=== PATIENT | female | born 1960 | race Caucasian/White ===

== ENCOUNTER 2021-06-01 04:55 | Day surgery (SDC) | payer BC ==
[2021-05-30 15:24] VITALS: BMI 24.7
[2021-06-01] MEDS ORDERED: KETAMINE HCL 200 MG/20 ML VIAL ONE (07:30)
[2021-06-01 08:38] VITALS: TEMP 97.7
[2021-06-01 09:36] VITALS: BP 120/65; PULSE 58
== END 2021-06-01 09:46 | disposition home or self-care (01) ==
LOC: JASU-ENDO 04:55
PROVIDERS: ATTEND Internal Medicine Gastroenterology
PROC: 0DBN8ZX Excision of Sigmoid Colon, Via Natural or Artificial Opening Endoscopic, Diagnostic (ICD-10-PCS; 2021-06-01)
PROC: 0DBP8ZX Excision of Rectum, Via Natural or Artificial Opening Endoscopic, Diagnostic (ICD-10-PCS; principal; 2021-06-01 08:00)
DX: Z12.11 Encounter for screening for malignant neoplasm of colon (principal); K62.1 Rectal polyp; D12.5 Benign neoplasm of sigmoid colon; K63.89 Other specified diseases of intestine
CPT/HCPCS: 88305-TC

== ENCOUNTER 2021-08-25 12:00 | Emergency (ER) | payer BC ==
[2021-08-25 12:31] VITALS: BP 144/82; PULSE 89; TEMP 98.9; BMI 32.9
[2021-08-25] MEDS ORDERED: DIPHTH,PERTUSS(ACELL),TET 0.5 ML DISP.SYRIN IM ONE ×2 (13:03→13:06)
== END 2021-08-25 13:16 | disposition home or self-care (01) ==
LOC: FER 12:00 → SUPCPDRO 12:00 → FER 13:16
PROC: 3E0234Z Introduction of Serum, Toxoid and Vaccine into Muscle, Percutaneous Approach (ICD-10-PCS; principal; 2021-08-25)
DX: R04.0 Epistaxis (principal)
CPT/HCPCS: 90715; 99282-25

== ENCOUNTER 2024-07-05 17:23 | Emergency (ER) | payer BC ==
[2024-07-05 17:39] VITALS: BP 151/81; PULSE 77; RESP 20; TEMP 98.2; BMI 24.7
[2024-07-05] MEDS: ACETAMINOPHEN 1000 MG/100 ML BAG IVPB ONE (17:54)
[2024-07-05] MEDS: KETOROLAC TROMETHAMINE 15 MG/ML VIAL IVPUSH ONE (17:54)
[2024-07-05] MEDS: SODIUM CHLORIDE 0.9% 500 ML INFUS.BAG IV ONE (17:54)
[2024-07-05] MEDS: ONDANSETRON 4 MG/2 ML VIAL IVPB ONE (17:54)
[2024-07-05] MEDS ORDERED: KETOROLAC TROMETHAMINE 30 MG/1 ML VIAL ONE (17:55)
[2024-07-05] MEDS ORDERED: ACETAMINOPHEN INJECTION 100 ML ONE (17:56)
[2024-07-05] MEDS ORDERED: ONDANSETRON 4 MG/2 ML VIAL ONE (17:56)
[2024-07-05 18:11] LABS: HEMATOCRIT 36.8 % (32.4-45.2); HEMOGLOBIN 11.7 G/dL (10.7-15.3); MCH 28.3 pg (25.7-33.7); MCHC 31.8 g/dl (32.0-36.0); MEAN CELL VOLUME 88.9 fl (80-96); MEAN PLT VOLUME 9.1 fl (7.5-11.1); PLATELET COUNT 223.6 10^3/uL (134-434); RBC 4.14 10^6/uL (3.60-5.2); RDW 13.8 % (11.6-15.6); WHITE BLOOD COUNT 6.5 10^3/uL (4.0-10.8)
[2024-07-05 18:27] LABS: ALBUMIN 4.4 g/dl (3.4-5.0); BILIRUBIN,TOTAL 0.5 mg/dl (0.2-1); CALCIUM 9.7 mg/dl (8.5-10.1); CREATININE 0.8 mg/dl (0.6-1.3); POTASSIUM 3.7 mmol/L (3.5-5.1); TOT PROT 6.8 g/dl (6.4-8.2)
[2024-07-05 22:25] LABS: PLATELET ESTIMATE ADEQUATE
== END 2024-07-05 20:50 | disposition home or self-care (01) ==
LOC: FER 17:23
PROC: 3E033NZ Introduction of Analgesics, Hypnotics, Sedatives into Peripheral Vein, Percutaneous Approach (ICD-10-PCS; principal; 2024-07-05)
PROC: 3E0333Z Introduction of Anti-inflammatory into Peripheral Vein, Percutaneous Approach (ICD-10-PCS; 2024-07-05)
PROC: 3E033GC Introduction of Other Therapeutic Substance into Peripheral Vein, Percutaneous Approach (ICD-10-PCS; 2024-07-05)
DX: R31.9 Hematuria, unspecified (principal); R10.32 Left lower quadrant pain
CPT/HCPCS: 36415; 74176-TC; 80053; 81003; 81015; 85027; 87086; 99284-25; J0131

== ENCOUNTER 2024-07-17 19:18 | Emergency (ER) | payer BC ==
[2024-07-17 19:27] VITALS: BP 143/88; PULSE 85; RESP 18; TEMP 98.4; BMI 23.3
[2024-07-17] MEDS ORDERED: KETOROLAC TROMETHAMINE 30 MG/1 ML VIAL ONE (19:29)
[2024-07-17] MEDS ORDERED: ONDANSETRON 4 MG/2 ML VIAL ONE (19:30)
[2024-07-17] MEDS: KETOROLAC TROMETHAMINE 30 MG/1 ML VIAL IVPUSH ONE (19:33)
[2024-07-17] MEDS: ONDANSETRON 4 MG/2 ML VIAL IVPUSH ONE (19:34)
[2024-07-17 20:02] LABS: HEMOGLOBIN 11.7 G/dL (10.7-15.3); MCH 29.2 pg (25.7-33.7); MCHC 32.4 g/dl (32.0-36.0); MEAN CELL VOLUME 89.9 fl (80-96); MEAN PLT VOLUME 8.7 fl (7.5-11.1); RDW 13.6 % (11.6-15.6); WHITE BLOOD COUNT 6.6 10^3/uL (4.0-10.8)
[2024-07-17 20:09] LABS: INR 0.97 (0.83-1.09); PROTHROMBIN TIME (PATIENT) 11.1 SEC (9.7-13.0)
[2024-07-17 20:10] LABS: PLATELET ESTIMATE ADEQUATE
[2024-07-17 20:19] LABS: ALBUMIN 4.5 g/dl (3.4-5.0); ALK PHOS 65 U/L (45-117); ANION GAP 9 mmol/L (4-13); BILIRUBIN,TOTAL 0.6 mg/dl (0.2-1); CALCIUM 9.7 mg/dl (8.5-10.1); CHLORIDE 104 mmol/L (98-107); CO2 28 mmol/L (21-32); CREATININE 0.9 mg/dl (0.6-1.3); GLUCOSE,RANDOM 125 mg/dl (74-106); POTASSIUM 3.6 mmol/L (3.5-5.1); SGOT/AST 19 U/L (15-37); SGPT/ALT 13 U/L (7-52); SODIUM 141 mmol/L (136-145); TOT PROT 6.9 g/dl (6.4-8.2)
[2024-07-17 22:18] LABS: EPITHELIAL CELLS 0-5 /hpf
== END 2024-07-17 21:29 | disposition home or self-care (01) ==
LOC: FER 19:18
PROC: 3E0333Z Introduction of Anti-inflammatory into Peripheral Vein, Percutaneous Approach (ICD-10-PCS; principal; 2024-07-17)
PROC: 3E033GC Introduction of Other Therapeutic Substance into Peripheral Vein, Percutaneous Approach (ICD-10-PCS; 2024-07-17)
DX: N23 Unspecified renal colic (principal)
CPT/HCPCS: 36415; 71046-TC-FY; 80053; 81003; 81015; 85027; 85610; 86850; 86900; 86901; 87086; 93005; 99285-25

== ENCOUNTER 2024-07-19 08:34 | Day surgery (SDC) | payer BC ==
[2024-07-19] MEDS ORDERED: ACETAMINOPHEN 500 MG TABLET (FP) ONE (08:48)
[2024-07-19] MEDS: ACETAMINOPHEN 500 MG TABLET (FP) PO ONE (09:00)
[2024-07-19 09:13] VITALS: BMI 23.3
[2024-07-19] MEDS ORDERED: MIDAZOLAM HCL 2 MG/2 ML SINGLE DOSE VIAL ONE (12:13)
[2024-07-19] MEDS ORDERED: PROPOFOL 20 ML ONE (12:13)
[2024-07-19] MEDS: ceFAZolin SODIUM 1 GM VIAL IVPB ONE (12:36)
[2024-07-19] MEDS ORDERED: DEXAMETHASONE SOD PHOSPHATE 4 MG/1 ML VIAL ONE (12:44)
[2024-07-19] MEDS ORDERED: ONDANSETRON 4 MG/2 ML VIAL ONE (12:44)
[2024-07-19] MEDS ORDERED: hydrALAZINE HCL 20 MG/ML VIAL ONE (12:44)
[2024-07-19] MEDS ORDERED: ceFAZolin SODIUM 1 GM VIAL ONE (12:44)
[2024-07-19] MEDS ORDERED: oxyCODONE HCL 5 MG TABLET PO PRN (13:24)
[2024-07-19] MEDS ORDERED: ONDANSETRON 4 MG/2 ML VIAL IVPUSH PRN (13:24)
[2024-07-19] MEDS: LACTATED RINGERS SOLUTION 1,000 ML IV SCH (13:30)
[2024-07-19] MEDS ORDERED: ELECTROLYTE-148 SOLN 1,000 ML IV SCH (13:45)
[2024-07-19] MEDS: ACETAMINOPHEN 1000 MG/100 ML BAG IVPB ONE (14:02)
[2024-07-19 14:29] VITALS: RESP 20
[2024-07-19 16:13] VITALS: BP 110/63; PULSE 66; TEMP 97.1
== END 2024-07-19 16:00 | disposition home or self-care (01) ==
LOC: JASU-SURG 08:34
PROVIDERS: ATTEND Urology
PROC: 0TC18ZZ Extirpation of Matter from Left Kidney, Via Natural or Artificial Opening Endoscopic (ICD-10-PCS; principal; 2024-07-19 12:30)
DX: N23 Unspecified renal colic (principal)
CPT/HCPCS: 76000-TC-FY; 94760; C2617

== ENCOUNTER 2024-09-05 22:15 | Emergency (ER) | payer BC ==
[2024-09-05 22:21] VITALS: BP 120/79; PULSE 72; RESP 18; TEMP 98.2; BMI 23.0
[2024-09-05] MEDS: morphine CARPU-JECT 2 MG/1 ML DISP.SYRIN IVPUSH ONE (23:07)
[2024-09-05] MEDS ORDERED: KETOROLAC TROMETHAMINE 30 MG/1 ML VIAL ONE (23:08)
[2024-09-05] MEDS ORDERED: ONDANSETRON *ODT* 4 MG TABLET ONE (23:08)
[2024-09-05] MEDS: KETOROLAC TROMETHAMINE 60 MG/2 ML VIAL IM ONE (23:17)
[2024-09-05] MEDS: ONDANSETRON 4 MG TABLET PO ONE (23:17)
[2024-09-06 00:46] LABS: BASO % 0.8 % (0-2.0); EOS % 0.9 % (0-4.5); HEMATOCRIT 33.3 % (32.4-45.2); HEMOGLOBIN 11.1 GM/dL (10.7-15.3); LYMPH % 11.4 % (8-40); MCH 29.2 pg (25.7-33.7); MCHC 33.4 g/dl (32.0-36.0); MEAN CELL VOLUME 87.2 fl (80-96); MEAN PLT VOLUME 8.9 fl (7.5-11.1); NEUT % 81.9 % (42.8-82.8); PLATELET COUNT 237 10^3/uL (134-434); RBC 3.82 M/mm3 (3.60-5.2); RDW 13.1 % (11.6-15.6); WHITE BLOOD COUNT 8.5 K/mm3 (4.0-10.0)
[2024-09-06 01:03] LABS: POTASSIUM 3.3 mmol/L (3.5-5.1)
[2024-09-06 01:05] LABS: CALCIUM 8.8 mg/dL (8.5-10.1)
[2024-09-06 01:06] LABS: ALBUMIN 3.9 g/dl (3.4-5.0); BLOOD UREA NITROGEN 20.8 mg/dL (7-18)
[2024-09-06 01:09] LABS: CREATININE 0.8 mg/dL (0.55-1.3)
[2024-09-06 01:11] LABS: BILIRUBIN,TOTAL 0.4 mg/dL (0.2-1); TOT PROT 6.6 g/dl (6.4-8.2)
[2024-09-06 01:32] LABS: EPI CELLS 2 /uL (0-25.1); HYALINE CASTS 0 /uL (0-3.1); URINE APPEARANCE CLEAR; URINE BACTERIA 9 /uL (0-1359); URINE BILIRUBIN NEGATIVE (NEGATIVE); URINE COLOR YELLOW; URINE GLUCOSE (UA) NEGATIVE (NEGATIVE); URINE KETONE NEGATIVE (NEGATIVE); URINE LEUK ESTERASE NEGATIVE (NEGATIVE); URINE NITRITE NEGATIVE (NEGATIVE); URINE PROTEIN NEGATIVE (NEGATIVE); URINE RBC 1883 /uL (0-23.9); URINE UROBILINOGEN 0.2 mg/dL (0.2-1.0); URINE WBC 21 /uL (0-25.8)
== END 2024-09-06 00:57 | disposition home or self-care (01) ==
LOC: FER 22:15
PROC: 3E0133Z Introduction of Anti-inflammatory into Subcutaneous Tissue, Percutaneous Approach (ICD-10-PCS; principal; 2024-09-05)
DX: R10.32 Left lower quadrant pain (principal)
CPT/HCPCS: 36415; 76775-TC; 80053; 81003; 85025; 99284-25